=== PATIENT | male | born 1950 | race Caucasian/White ===

== ENCOUNTER 2022-07-23 15:25 | Emergency (ER) | payer OTHER ==
[2022-07-23 15:47] VITALS: RESP 20; TEMP 98; BMI 29.4
[2022-07-23] MEDS ORDERED: NITROGLYCERIN SUBLINGUAL 1/150 0.4 MG TAB SL ONE ×2 (16:21→17:58)
[2022-07-23] MEDS ORDERED: NITROGLYCERIN SUBLINGUAL 1/150 0.4 MG TAB ONE ×3 (16:54→18:03)
[2022-07-23] MEDS ORDERED: CLOPIDOGREL BISULFATE 300 MG TABLET PO ONE (17:01)
[2022-07-23] MEDS ORDERED: CLOPIDOGREL BISULFATE 300 MG TABLET ONE (17:11)
[2022-07-23] MEDS ORDERED: HEPARIN SOD,PORK IN 0.45% NACL 25,000 UNITS/500 ML INFUS.BAG IVPB SCH (17:15)
[2022-07-23] MEDS ORDERED: HEPARIN NA (PORCINE) 5,000 UNITS/ML 1ML VIAL IVPUSH PRN ×3 (17:15)
[2022-07-23 17:17] LABS: HEMATOCRIT 31.2 % (35.4-49); HEMOGLOBIN 10.6 G/dL (11.7-16.9); MCH 29.9 pg (25.7-33.7); MCHC 33.8 g/dl (32.0-35.9); MEAN CELL VOLUME 88.5 fl (80-96); PLATELET COUNT 258.9 10^3/uL (134-434); RBC 3.53 10^6/uL (4.00-5.60); RDW 14.8 % (11.9-15.9); WHITE BLOOD COUNT 9.6 10^3/uL (4.0-10.8)
[2022-07-23] MEDS ORDERED: HEPARIN INFUSION - 25,000 UNITS/500 ML INFUS.BAG IVPB ONE (17:19)
[2022-07-23] MEDS ORDERED: HEPARIN NA (PORCINE) 5,000 UNITS/ML 1ML VIAL ONE (17:19)
[2022-07-23 17:31] LABS: PLATELET ESTIMATE ADEQUATE
[2022-07-23] MEDS ORDERED: morphine SULFATE 4 MG/ML VIAL ONE ×2 (17:59→18:10)
[2022-07-23] MEDS ORDERED: morphine CARPU-JECT 8 MG/1 ML DISP.SYRIN IVPUSH ONE (18:02)
[2022-07-23] MEDS ORDERED: morphine SULFATE 4 MG/ML VIAL IVPUSH ONE (18:11)
[2022-07-23 18:13] VITALS: BP 110/55; PULSE 71
[2022-07-23 18:15] LABS: ALBUMIN 3.2 g/dl (3.4-5.0); BILIRUBIN,TOTAL 0.4 mg/dl (0.2-1); CALCIUM 8.4 mg/dl (8.5-10); CREATININE 0.9 mg/dl (0.55-1.3); TOT PROT 5.9 g/dl (6.4-8.2)
== END 2022-07-23 18:24 | disposition short-term general hospital (02) ==
LOC: FER 15:25
PROC: 3E033GC Introduction of Other Therapeutic Substance into Peripheral Vein, Percutaneous Approach (ICD-10-PCS; principal; 2022-07-23)
PROC: 3E033GC Introduction of Other Therapeutic Substance into Peripheral Vein, Percutaneous Approach (ICD-10-PCS; 2022-07-23)
PROC: 3E033GC Introduction of Other Therapeutic Substance into Peripheral Vein, Percutaneous Approach (ICD-10-PCS; 2022-07-23)
PROC: 3E033NZ Introduction of Analgesics, Hypnotics, Sedatives into Peripheral Vein, Percutaneous Approach (ICD-10-PCS; 2022-07-23)
PROC: 3E033NZ Introduction of Analgesics, Hypnotics, Sedatives into Peripheral Vein, Percutaneous Approach (ICD-10-PCS; 2022-07-23)
DX: I21.3 ST elevation (STEMI) myocardial infarction of unspecified site (principal)
CPT/HCPCS: 0241U-QW; 36415; 71045-TC-FY; 80053; 83690; 83880; 84484; 85027; 85379; 93005; 99291; J1644